=== PATIENT | male | born 2005 | race Two or more races ===

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

== ENCOUNTER 2023-11-13 21:15 | Emergency (ER) | payer BC ==
[2023-11-13 21:25] VITALS: BP 125/78; PULSE 74; RESP 20; TEMP 97.7; BMI 21.5
[2023-11-13] MEDS ORDERED: DIPHTH,PERTUSS(ACELL),TET 0.5 ML DISP.SYRIN IM ONE (22:45)
[2023-11-13] MEDS: DIPHTH,PERTUSS(ACELL),TET 0.5 ML DISP.SYRIN IM ONE (22:49)
[2023-11-13] MEDS ORDERED: AMOX TR/POT CLAV 875MG/125MG TABLETS (FP) ONE (22:57)
[2023-11-13] MEDS: AMOX TR/POT CLAV 875MG/125MG TABLETS (FP) PO STA (22:59)
== END 2023-11-13 23:28 | disposition home or self-care (01) ==
LOC: JER 21:15 → JERFT 21:15 → JER 23:28
PROC: 3E0234Z Introduction of Serum, Toxoid and Vaccine into Muscle, Percutaneous Approach (ICD-10-PCS; principal; 2023-11-13)
DX: S61.256A Open bite of right little finger without damage to nail, initial encounter (principal); W54.0XXA Bitten by dog, initial encounter; Z23 Encounter for immunization
CPT/HCPCS: 90715; 99283-25

== ENCOUNTER 2024-06-23 17:35 | Emergency (ER) | payer BC ==
[2024-06-23 17:56] VITALS: BP 131/71; PULSE 90; RESP 16; TEMP 99.1; BMI 18.6
[2024-06-23] MEDS ORDERED: DEXAMETHASONE SOD PHOSPHATE 10 MG/1 ML VIAL ONE (18:28)
[2024-06-23] MEDS ORDERED: PENICILLIN G BENZATHINE 1,200,000 UNIT/2 ML PFS IM ONE (18:28)
[2024-06-23] MEDS: PENICILLIN G BENZATHINE 1,200,000 UNIT/2 ML PFS IM ONE (18:36)
[2024-06-23] MEDS: DEXAMETHASONE SOD PHOSPHATE 10 MG/1 ML VIAL IM ONE (18:37)
== END 2024-06-23 19:02 | disposition home or self-care (01) ==
LOC: JERFT 17:35
PROC: 3E02329 Introduction of Other Anti-infective into Muscle, Percutaneous Approach (ICD-10-PCS; principal; 2024-06-23)
PROC: 3E023GC Introduction of Other Therapeutic Substance into Muscle, Percutaneous Approach (ICD-10-PCS; 2024-06-23)
DX: J03.90 Acute tonsillitis, unspecified (principal)
CPT/HCPCS: 99284-25; J1100